=== PATIENT | male | born 1960 | race African-American/Black ===

== ENCOUNTER 2017-11-09 10:28 | Emergency (ER) | payer OTHER ==
[~2017-11-09] VITALS: Ht 170.2 cm; Wt 82.6 kg
[~2017-11-09 10:28] MED LIST: INVOKANA100 MG PO; LIPITOR20 MG PO; LISINOPRIL-HCT1 EAC2 PO; NORVASC10 MG PO; OMEGA 3 FISH O1 EACH PO; VIAGRA100 MG PO
[2017-11-09] MEDS ORDERED: JANUVIA25 MG PO (10:37)
[2017-11-09] MEDS ORDERED: BENADRYL25 MG PO (11:14)
[2017-11-09] MEDS ORDERED: PEPCID20 MG PO (11:14)
[2017-11-09] MEDS ORDERED: PREDNISONE 20 M20 MG PO (11:14)
== END 2017-11-09 11:17 | disposition home or self-care (01) ==
LOC: ER 10:28
DX: T78.3XXA Angioneurotic edema, initial encounter (principal); I10 Essential (primary) hypertension; E11.9 Type 2 diabetes mellitus without complications; E78.00 Pure hypercholesterolemia, unspecified; F17.210 Nicotine dependence, cigarettes, uncomplicated; Z88.8 Allergy status to other drugs, medicaments and biological substances